=== PATIENT | male | born 2000 | race African-American/Black ===

== ENCOUNTER 2024-07-02 23:23 | Emergency (ER) | payer MEDICAID, SELFPAY ==
[2024-07-02 23:24] VITALS: BMI 22.4
[2024-07-02 23:38] VITALS: BP 158/102; PULSE 99; RESP 21; TEMP 36.4; O2SAT 96
--- NOTE | 2024-07-02 23:45 | XR_ITS ---
Examination: AP lateral soft tissue neck 2 views Technique: AP lateral soft tissue neck 2 views Exam date and time: July 03, 2024 1216 hrs. Indications: Food stuck in the neck Findings: Moderate adenoidal hypertrophy Normal epiglottis No opaque foreign body Satisfactory alignment cervical vertebral bodies Impression: No opaque foreign body Consider standard fluoroscopically guided esophagram follow-up
--- NOTE | 2024-07-02 23:45 | PD.EDRME ---
Rapid Medical Screening Exam RME Arrival date/time: 07/02/24 23:23 24M with no significant PMH presents to ED with sensation of food stuck in throat. Patient cannot keep fluids down since then. Mom notes patient has had similar episodes about 4 times this past year, but has not seen PCP for this. Chief Complaint: Dental/Oral/Throat Vital signs: Vital Signs Temperature 97.6 F 07/02/24 23:38 Pulse Rate 99 07/02/24 23:38 Respiratory Rate 21 H 07/02/24 23:38 Blood Pressure 158/102 H 07/02/24 23:38 Pulse Oximetry (%) 96 07/02/24 23:38 Oxygen Delivery Method Room Air 07/02/24 23:38
[2024-07-03] MEDS: GLUCAGON INJ 1 MG VIAL IM (00:01)
--- NOTE | 2024-07-03 01:23 | EDNOTE_ITS ---
ED Dental RME/HPI General Chief complaint: Dental/Oral/Throat Stated complaint: SORE THROAT AFTER SWALLOWING A PIECE OF FOOD Time Seen by Provider: 07/03/24 01:32 Arrival date/time: 07/02/24 23:23 RME / HPI RME / HPI Narrative: 07/02/24 23:23 24M with no significant PMH presents to ED with sensation of food stuck in throat. Patient cannot keep fluids down since then. Mom notes patient has had similar episodes about 4 times this past year, but has not seen PCP for this. ------ Dr. Mckinley?s Main ED Evaluation: 24yo male with no significant past medical or surgical history presents to the ED for a chief complaint of food stuck in his throat. Patient states he was eating a piece of food from [employer] around 1900 and has been unable to flush it down with fluids nor is he tolerating fluids. He states he's been having similar episodes for the last 2 years, but has not been evaluated for it. He endorses having chills and 10-15 pounds of unintentional weight loss in the last month. He denies any fevers or any other associated symptoms. No known allergies. Related Data Previous Rx's ?Medication ?Instructions ?Recorded ibuprofen 600 mg tablet 600 mg PO Q6H #30 tabs 10/08/23 tramadol 50 mg tablet 50 mg PO BID PRN pain #6 tabs 10/08/23 Allergies Allergy/AdvReac Type Severity Reaction Status Date / Time No Known Allergies Allergy Verified 05/22/24 00:34 Review of Systems Review of Systems Systems Reviewed: All systems reviewed, normal except as documented Past Medical History Past Medical History CARDIAC: Negative Congestive Heart Failure RESPIRATORY: Negative Chronic Obstructive Pulmonary Disease (COPD) GASTROINTESTINAL: Positive Gastroesophageal Reflux Disease GENITOURINARY: Negative Renal Disease ENDOCRINE: Negative Diabetes Mellitus Type 1 or Diabetes Mellitus Type 2 Social History SMOKING STATUS: Never smoker ED Exam Narrative Physical exam: GENERAL APPEARANCE: alert and oriented x 4, well-developed, well-nourished, no acute distress; when the patient drinks water, he is seen to regurgitate stomach contents VITALS: All vitals were reviewed and the pulse ox is 96% on room air, which is normal according to my interpretation. HEENT: Normocephalic, atraumatic; pupils equal, round, reactive to light; EOMI; mucous membranes pink, moist; oropharynx clear NECK: Supple LUNGS: CTABL; no wheezes, no rales, no rhonchi HEART: Regular rate, regular rhythm; normal S1, S2; no murmurs ABDOMEN: non distended; normal BS; soft, no tenderness, no guarding, no rebound; no masses, no organomegaly, no hernia BACK: no CVA tenderness EXTREMITIES: atraumatic; no edema NEUROLOGIC: awake; alert and oriented x4; cranial nerves II-XII grossly intact; no focal sensory or motor deficits PSYCHIATRIC: appropriate mood and affect SKIN: warm, dry, normal color; no rashes Course Course Course Narrative: 0600: Care signed out to [Dr. Jones]. Past medical, surgical, social and family history reviewed. Vitals and home medications reviewed. Results and treatment plan discussed. They will assume the care of the patient at this time and will follow the patient, pending CT results.. Quality Measures none Orders Category Date Time Status CT Screening NOW Care 07/03/24 02:[address] soft tissue neck chest w Stat Exams 07/03/24 02:13 Taken XR soft tissue neck Stat Exams 07/02/24 23:45 Taken BMP [Basic Metabolic Panel] Stat Lab 07/03/24 02:49 Completed CBC Stat Lab 07/03/24 02:49 Completed Free T4 (Free Thyroxine) Stat Lab 07/03/24 02:49 Completed Magnesium Stat Lab 07/03/24 02:49 Completed TSH [Thyroid Stimulating Hormone] Stat Lab 07/03/24 02:49 Completed Glucagon Inj Med 07/02/24 23:45 Discontinued 1 mg IM X1 ONE Vital Signs Vital signs: Vital Signs Temperature 97.6 F 07/02/24 23:38 Pulse Rate 99 07/02/24 23:38 Respiratory Rate 21 H 07/02/24 23:38 Blood Pressure 158/102 H 07/02/24 23:38 Pulse Oximetry (%) 96 07/02/24 23:38 Oxygen Delivery Method Room Air 07/02/24 23:38 Dental / Oral MDM Narrative MDM Narrative:: Scribe Attestation: IJennifer, am scribing for and in the presence of Dr. Mckinley. Provider Notation: Although this document has been carefully reviewed, there may still be some phonetic and other typographical errors. These errors are purely grammatical due to imperfections in the software program and should not be construed in any way to compromise the substance of the patient's medical care during this visit. Patient data External records reviewed:: [facility] previous records (Per chart review, patient was last seen here on 05/22/24 for an abrasion.) Clinical information provided by:: patient Social determinants that could affect healthcare access:: none Patient has the following chronic illnesses:: none How is presenting disease/condition affected by chronic disease/condition?: no chronic disease Evaluation data The following diagnostics were reviewed and interpreted by me:: radiology exam(s) Lab and/or radiology exams considered but not ordered:: none Interpretation Summary: CT pending at signout. Medications / Prescriptions Medications or Prescriptions considered but not ordered:: none Medication administrations:: Medication Administration History Discontinued Medications Glucagon (Glucagon Inj 1 Mg Vial) 1 mg IM X1 ONE Stop: 07/02/24 23:46 Last Admin: 07/03/24 00:01 Dose: 1 mg Documented By: see above Consultations Consultation(s) initiated? (list below): No Diagnosis Dental Differential Diagnosis: other (achalasia, esophageal food bolus, esophageal hypomotility, esophageal mass, chest mass, other) Most likely diagnosis given after review of the tests above:: final dx pending at signout Admission Indicated Admission indicated?: not indicated Admission Request Was there a request for admission?: No Disposition Plan Disposition Plan: other (specify) (Signed out to the next oncoming provider at [address] results.) Discharge Plan Prescriptions/Referrals Prescriptions/Med Rec: No Action tramadol 50 mg tablet 50 mg PO BID PRN (Reason: pain) Qty: 6 0RF ibuprofen 600 mg tablet 600 mg PO Q6H Qty: 30 0RF Referrals: Temporary Provider,ED [Physician] - In 1 week Problem List Clinical Impression: Esophageal abnormality Patient/Caregiver Discharge Instructions Print Language: Welsh
[2024-07-03 02:00] VITALS: BP 143/87; PULSE 81; RESP 18; O2SAT 97
--- NOTE | 2024-07-03 02:13 | XR_ITS ---
Examination: CT soft tissue neck with intravenous contrast CT chest with intravenous contrast 2-D sagittal and coronal reconstructions Exam date and time: July 03, 2024 0436 hrs. Indications: Sore throat with difficulty swallowing food this week CTDI:vol (mGy) 26.5 DLP: (mGycm) 1061 Technique: Multiple axial sections of the soft tissue neck thorax have been obtained. Sections have been obtained, 3 mm slice thickness. Mediastinal and lung density settings have been obtained. Intravenous contrast administered, 50 cc Isovue-370. 2-D sagittal, coronal images obtained. Low dose protocols were performed. One or more of the following dose reduction techniques were used; automated exposure control, adjustment of the mA and/or KV according to patient size, use of iterative reconstruction technique. Findings: Chronic mucosal disease involving ethmoid air cells maxillary antra Normal epiglottis No opaque foreign body in the neck Left laryngocele, 12 x 10 mm D or right and left main bronchi are clear of opaque foreign bodies Nonspecific carotid triangle and submental lymphadenopathy The esophagus is not dilated in the upper and midportion No mediastinal lymphadenopathy No pneumonia or pulmonary edema No focal liver or splenic lesion Impression: Chronic sinus disease Left laryngocele
[2024-07-03 03:10] LABS: Basophils # (Auto) 0.1 Thou/mm3 (0.0-0.2); Basophils % (Auto) 1 % (0-2.5); Eosinophils % (Auto) 0 % (0-10); Hematocrit 41.9 % (41.0-53.0); Immature Granulocytes % (Auto) 0 % (0-0); Immature Granulocytes Auto 0.05 Thou/mm3 (0.00-0.00); Lymphocytes # (Auto) 1.4 Thou/mm3 (1.0-4.8); Lymphocytes % (Auto) 11 % (10-50); Mean Corpuscular HGB Conc 35.8 g/dl (31.0-37.0); Mean Corpuscular Hemoglobin 31.8 pg (25.0-35.0); Mean Corpuscular Volume 89 fL (80-100); Monocytes % (Auto) 8 % (0-12); Neutrophils # (Auto) 10.6 Thou/mm3 (1.8-7.7); Neutrophils % (Auto) 81 % (37-80); Nucleated Red Blood Cell % 0 /100 WBC (0); Platelet Count 389 Thou/mm3 (140-440); RDW Standard Deviation 38.8 fL (35.1-43.9); Red Blood Count 4.72 Miln/mm3 (4.50-5.90); White Blood Count 13.2 Thou/mm3 (3.8-10.6)
[2024-07-03 03:24] LABS: Anion Gap 11 (7-16); BUN/Creatinine Ratio 17 Ratio (12-20); Blood Urea Nitrogen 20 mg/dL (9-23); Calcium 9.8 mg/dL (8.3-10.6); Carbon Dioxide 21.8 mMol/L (20.0-31.0); Chloride 103 mMol/L (98-107); Creatinine (Component) 1.2 mg/dL (0.6-1.3); Estimated Creatinine Clearance 105.3 mL/min (>60); Free T4 (Free Thyroxine) 1.62 ng/dL (0.89-1.76); Glucose 80 mg/dL (74-106); Magnesium 2.2 mg/dL (1.6-2.6); Osmolality,Calculated 273 (275-295); Potassium 3.7 mMol/L (3.4-5.1); Sodium 136 mMol/L (136-145); Thyroid Stimulating Hormone 0.95 uIU/mL (0.55-4.78); eGFR > 60 See Note
--- NOTE | 2024-07-03 06:31 | PRELIM_ITS ---
CT scan of the neck and chest with intravenous contrast (axial sections with sagittal and coronal ref ormats) dated July 03, 2024 at 0436 hoursClinical History: Sensation of a mass in throat/chest.No prior study is available for comparison. Findings: There is mllu-vn-vtwomcbo mucosal thickening in b oth maxillary and ethmoid sinuses. There is a 1.2 x 0.8 cmleft internal, air-filled laryngocele neigh boring the epiglottis. The nasopharynx, oropharynx, hypopharynx, supraglottic and infraglottic larynx , vocal cords and upper trachea are unremarkable. The epiglottis and aryepiglottic folds appear unrem arkable. Prominent bilateral jugulodigastric lymph nodes are seen bilaterally. The superficial soft t issues of the neck are unremarkable.No enhancing lesion or fluid collection is identified. The vessel s of the neck are well opacified. No filling defect is seen.There is mild focal subpleural scarring i n the left upper lobe. There is no pneumothorax or pleural effusion. The aorta is unremarkable. No ev idence of mediastinal mass or lymphadenopathy. There is no pericardial effusion.There is a 5.2 x 3.1 cm right renal cyst with peripheral calcification. The osseous structures are unremarkable.Impression :Small left internal, air-filled laryngocele neighboring the epiglottis.Sinus disease as described. Justino menendez Electronically Signed By: Man Franco 07/03/2024 6:31:44 AM [EST]
--- NOTE | 2024-07-03 06:36 | EDNOTE_ITS ---
Emergency Room Addendum <Maribel Spence - Last Filed: 07/03/24 07:05> Addendum Narrative: 0600: Care assumed from Dr. Mckinley, the previous shift emergency physician. Past medical, surgical, social and family history reviewed. Vitals and home medications reviewed. I will assume the care of the patient at this time, pending CT report. Please refer to the emergency department record for history and examination from initial visit.? Nursing notes reviewed by me. Vital signs reviewed by me. [facility] medical records reviewed by me. RADIOLOGY Ordering Physician: Date of Service: Procedure(s): Accession Number(s): cc: ~ CT scan of the neck and chest with intravenous contrast (axial sections with sagittal and coronal reformats) dated July 03, 2024 at 0436 hours Clinical History: Sensation of a mass in throat/chest. No prior study is available for comparison. Findings: There is uvrm-do-mcypzuei mucosal thickening in both maxillary and ethmoid sinu ses. There is a 1.2 x 0.8 cmleft internal, air-filled laryngocele neighboring the epiglottis. The nasopharynx, oropharynx, hypopharynx, supraglottic and infraglottic larynx, vocal cords and upper trachea are unremarkable. The epiglottis and aryepiglottic folds appear unremarkable. Prominent bilateral jugulodigastric lymph nodes are seen bilaterally. The superficial soft tissues of the neck are unremarkable. No enhancing lesion or fluid collection is identified. The vessels of the neck are well opacified. No filling defect is seen. There is mild focal subpleural scarring in the left upper lobe. There is no pneumothorax or pleural effusion. The aorta is unremarkable. No evidence of mediastinal mass or lymphadenopathy. There is no pericardial effusion. There is a 5.2 x 3.1 cm right renal cyst with peripheral calcification. The osseous structures are unremarkable. Impression: Small left internal, air-filled laryngocele neighboring the epiglottis. Sinus disease as described. Report Electronically Signed By: Man Franco 07/03/2024 6:31:44 AM [EST] <Crispin Jones MD - Last Filed: 07/03/24 07:09> Addendum Narrative: 0600: Care assumed from Dr. Mckinley, the previous shift emergency physician. Past medical, surgical, social and family history reviewed. Vitals and home medications reviewed. I will assume the care of the patient at this time, pending CT report. Please refer to the emergency department record for history and examination from initial visit.? Nursing notes reviewed by me. Vital signs reviewed by me. [facility] medical records reviewed by me. RADIOLOGY Ordering Physician: Date of Service: Procedure(s): Accession Number(s): cc: ~ CT scan of the neck and chest with intravenous contrast (axial sections with sagittal and coronal reformats) dated July 03, 2024 at 0436 hours Clinical History: Sensation of a mass in throat/chest. No prior study is available for comparison. Findings: There is mees-tl-wtmafkvi mucosal thickening in both maxillary and ethmoid sinuses. There is a 1.2 x 0.8 cmleft internal, air-filled laryngocele neighboring the epiglottis. The nasopharynx, oropharynx, hypopharynx, supraglottic and infraglottic larynx, vocal cords and upper trachea are unremarkable. The epiglottis and aryepiglottic folds appear unremarkable. Prominent bilateral jugulodigastric lymph nodes are seen bilaterally. The superficial soft tissues of the neck are unremarkable. No enhancing lesion or fluid collection is identified. The vessels of the neck are well opacified. No filling defect is seen. There is mild focal subpleural scarring in the left upper lobe. There is no pneumothorax or pleural effusion. The aorta is unremarkable. No evidence of mediastinal mass or lymphadenopathy. There is no pericardial effusion. There is a 5.2 x 3.1 cm right renal cyst with peripheral calcification. The osseous structures are unremarkable. Impression: Small left internal, air-filled laryngocele neighboring the epiglottis. Sinus disease as described. Report Electronically Signed By: Man Franco 07/03/2024 6:31:44 AM [EST] On my examination, the patient is alert awake oriented x 4 GCS of 15 talking well. No airway breathing or circulation problem. And that he was drinking water and [employer] and kept it down without any difficulty. He said that his symptomatology has been going on and off for the last couple of years. This has been a chronic issue. CT of the neck and chest were done and were read by the radiologist please see above report. And I gave the patient copy of his CT report to follow-up with PMD. Of note, that we do not have any ENT specialist on-call for the ER. [facility] And he is encouraged [facility] for [facility] evaluation and treatment and I asked him to ask the [facility] to refer him to a E NT specialist for further evaluation and treatment and may be scoping. Since this is a chronic issue, I do not see any emergency that we have to transfer the patient. After all airway breathing circulation the normal. And the patient is able to tolerating p.o. intake. Diagnosis: Laryngocele Condition: Stable DC instruction: You have a laryngocele in your throat. You need to see your [facility] for further evaluation and treatment. Please ask the doctor to refer you to see ear nose and throat surgeon for further evaluation and treatment. Return to the nearest emergency department if condition worsens or if new symptoms develop.
[2024-07-03 07:40] VITALS: BP 141/83; PULSE 76; RESP 16; TEMP 37; O2SAT 100
== END 2024-07-03 08:08 | disposition home or self-care (01) ==
PROVIDERS: Emergency Medicine; Emergency Provider Emergency Medicine; PCP Family Medicine
DX: Q31.3 Laryngocele (principal)
CPT/HCPCS: 36415; 70360; 70491; 71260; 80048; 83735; 84439; 84443; 85025; 96372; 99285; A4649; J1610; Q9967